=== PATIENT | female | born 1945 | race Caucasian/White ===

== ENCOUNTER 2019-02-08 07:44 | Inpatient (IN) ==
--- NOTE | 2019-01-24 13:00 | PAT Medication Instructions ---
Medication Instructions Date of Service January 24, 2019 Home Medications acetaminophen 1,000 mg PO Q6H PRN amlodipine 10 mg PO QPM anastrozole 1 mg PO QPM aspirin [Aspirin Low Dose] 81 mg PO QPM calcium carbonate-vitamin D3 1 tab PO QPM iwcvhgmj-zyicy-esc 149-hyal ac 1 tab PO QPM ibandronate 150 mg PO MONTHLY ibuprofen 200 - 400 mg PO QID PRN levothyroxine 88 mcg PO QPM fubmaespxthv-efw-mhmo-FA-vit K 1 tab-cap PO QPM xy-uk-pciprl-aruo-jxlkdz-au843 1 cap PO QPM naproxen sodium [Aleve] 220 mg PO BID PRN Continue as directed ibandronate 150 mg PO MONTHLY ASK your surgeon for instructions naproxen sodium [Aleve] 220 mg PO BID PRN ASK your prescriber and surgeon anastrozole 1 mg PO QPM STOP taking 2 weeks before surgery (or as soon as possible if surgery is within 2 weeks) ojnccegz-xjauz-cwn 149-hyal ac 1 tab PO QPM jt-wf-mkkdto-asjm-ztasxb-ni303 1 cap PO QPM Take morning of surgery With a small sip of water, OTHERWISE NOTHING TO EAT OR DRINK AFTER MIDNIGHT: acetaminophen 1,000 mg PO Q6H PRN (okay to take up to 4 hours prior to surgery if needed) Take evening before surgery acetaminophen 1,000 mg PO Q6H PRN (if needed) amlodipine 10 mg PO QPM aspirin [Aspirin Low Dose] 81 mg PO QPM calcium carbonate-vitamin D3 1 tab PO QPM levothyroxine 88 mcg PO QPM Other Notes If you have any questions please call us at [phone] or [phone] or [phone] or [phone]
--- NOTE | 2019-01-24 13:00 | Anesthesiology Consultation ---
Date of Service January 24, 2019 Assessment & Plan (1) Encounter for pre-operative examination: Chart Review Chart Review: Acceptable Risk for Surgery and Patient seen in Pre Admission Testing Teaching & Discussion Pre-Anesthesia Teaching/Discussion Notes: Instructed NPO after midnight before surgery,except medications with 15 cc of water. Medication instructions provided according to the PAT guidelines. History Surgery Operation Date: 02/08/19 07:00 Proposed Procedures p Left Total Knee Arthroplasty - Campos See MD Height/Weight Height: 5 ft 9 in Weight: 103 kg Allergies Allergy/AdvReac Type Severity Reaction Status Date / Time gabapentin AdvReac Mild feet and Verified 01/17/19 08:59 leg swelling Medications Home Medications Medication Instructions Recorded Confirmed Last Taken acetaminophen 1,000 mg PO Q6H PRN 01/17/19 01/17/19 Unknown amlodipine 10 mg PO QPM 01/17/19 01/17/19 Unknown anastrozole 1 mg PO QPM 01/17/19 01/17/19 Unknown aspirin [Aspirin Low Dose] 81 mg PO QPM 01/17/19 01/17/19 Unknown calcium carbonate-vitamin D3 1 tab PO QPM 01/17/19 01/17/19 Unknown [Calcium 500 + D (D3)] ipidnisw-cclxs-tqo 149-hyal ac 1 tab PO QPM 01/17/19 01/17/19 Unknown [Glucos Chond Cplx Advanced] ibandronate 150 mg PO MONTHLY 01/17/19 01/17/19 Unknown ibuprofen 200 - 400 mg PO QID PRN 01/17/19 01/17/19 Unknown levothyroxine 88 mcg PO QPM 01/17/19 01/17/19 Unknown cbobpacapjcj-udb-sfqx-FA-vit K 1 tab-cap PO QPM 01/17/19 01/17/19 Unknown [Multi For Her] ik-ch-tmffyw-bphw-dstqdp-vw112 1 cap PO QPM 01/17/19 01/17/19 Unknown [Macular Health Formula] naproxen sodium [Aleve] 220 mg PO BID PRN 01/17/19 01/17/19 Unknown Past Medical History Medical History Hx of breast cancer Hypertension Hypothyroidism Macular degeneration ON PREVENTATIVE MEDS PER PATIENT Osteoarthritis Past Surgical History Surgical History History of bilateral mastectomy Hx of bilateral breast implants Hx of hysterectomy, total Past Anesthesia History No Family Hx of Anesthesia Complications and Other Patient states she states she overheard after surgery that she had trouble breathing and hypotension with 2014 b/l breast [place] [facility] [place] was not told there was any issues with surgery. no interventions were needed and patient was discharged the next day as planned without issue. She states no similar issues with other surgeries.* History of PONV No Motion Sickness Screening History of Motion Sickness: No Social History Smoking Status: Never smoker Do You Dip or Chew Tobacco: No Hx Alcohol Use: No Hx Substance Use: No Exercise / Class Metabolic Activity III < 4 Walking/Shop/Light housework Review of Systems Patient denies chest pain, shortness of breath, cough, wheezing, palpitations. Physical Exam Vital Signs VITALS BP 120/76 P 64 TEMP 97.5 SP02 97%RA RESP 16 PHYSICAL Full neck and c-spine range of motion. Full TMJ range of motion. TMD 3 finger breaths Mallampati Score 2 Dentition: intact, crown on molar Lungs: clear throughout to auscultation Cardiac: regular rate and rhythm, no murmurs noted Spine: normal Carotid arteries: negative bruit Extremities: no edema Testing Electrocardiogram Date: 01/24/19 SR with first degree AVB at 64bpm. Otherwise "normal" Chest X-Ray Date: 01/24/19 Findings: + NAD Laboratory Results 01/24/19 13:18 01/24/19 13:18 Blood Type O Positive 01/24/19 13:18 Antibody Screen NEGATIVE 01/24/19 13:18 PT 10.0 Seconds (9.0-12.0) 01/24/19 13:18 INR 1.0 (0.9-1.1) 01/24/19 13:18 APTT 29.3 Seconds (21.0-31.0) 01/24/19 13:18 Hemoglobin A1c 5.6 % (4.5-5.6) 01/24/19 13:18 Urine Color Yellow 01/24/19 13:18 Urine Appearance Cloudy (Clear) H 01/24/19 13:18 Urine pH 5.0 (4.5-7.5) 01/24/19 13:18 Ur Specific Kirby 1.023 (1.000-1.030) 01/24/19 13:18 Urine Protein Negative (Negative) 01/24/19 13:18 Urine Glucose (UA) Negative (Negative) 01/24/19 13:18 Urine Ketones Negative (Negative) 01/24/19 13:18 Urine Nitrite Positive (Negative) H 01/24/19 13:18 Ur Leukocyte Esterase 3+ (Negative) H 01/24/19 13:18 Urine WBC (Auto) >30 /hpf (0-5) H 01/24/19 13:18 Urine RBC (Auto) 5-10 /hpf (0-4) H 01/24/19 13:18 U Hyaline Cast (Auto) 1-5 /lpf (0-5) 01/24/19 13:18 U Epithel Cells (Auto) 20-30 /lpf (0-5) H 01/24/19 13:18 Urine Bacteria (Auto) 4+ (Negative) H 01/24/19 13:18 01/24/19 13:18 Urine Culture - Preliminary Urine,Random Escherichia coli Surgeon made aware of abnormal UA*
--- NOTE | 2019-01-24 13:42 | XRay Report ---
XR chest Pre-admission PA/Lat HISTORY: 73 years-old Female pat preoperative exam. No acute chest complaints reported COMPARISON: None available TECHNIQUE: PA and lateral views of the chest FINDINGS: Cardiomediastinal and hilar silhouettes are within normal limits. There is no pneumothorax, pleural e ffusion, focal airspace consolidation or overt pulmonary edema. Degenerative changes are seen about t he shoulders and spine. IMPRESSION: No acute process. The above report was generated using voice recognition software. It may contain grammatical, syntax o r spelling errors. Electronically signed by: Zafar Hernandez M.D. 01/24/2019 1:41 PM
[2019-01-24 15:34] LABS: Basophils # (auto) 0.06 K/uL (0-0.2); Basophils % (auto) 0.6 %; Eosinophils # (auto) 0.24 K/uL (0-0.5); Eosinophils % (auto) 2.3 %; Hematocrit (blood only) 42.5 % (37-47); Hemoglobin 14.3 g/dL (12.0-16.0); Immature Granulocytes # (auto) 0.02 K/uL (0.00-0.02); Immature Granulocytes % (auto) 0.2 %; Lymphocytes # (auto) 3.09 K/uL (1.2-3.4); Lymphocytes % (auto) 29.6 %; Mean Corpuscular Hgb Conc 33.6 g/dL (32-36); Mean Corpuscular Volume 93.4 fL (80-100); Mean Platelet Volume 10.5 fL (7.4-10.4); Monocytes # (auto) 0.76 K/uL (0.11-0.59); Monocytes % (auto) 7.3 %; Neutrophils # (auto) 6.27 K/uL (1.4-6.5); Platelet Count 345 K/uL (130-400); RDW Coefficient of Variation 13.5 % (11.5-14.5); RDW Standard Deviation 46.3 fL (36.4-46.3); Red Blood Count 4.55 M/uL (4.2-5.4); White Blood Count 10.44 K/uL (4.8-10.8)
[2019-01-24 15:44] LABS: Albumin Level 4.3 gm/dl (3.4-5.0); Appearance Urine Cloudy (Clear); BUN Creatinine Ratio 24.4 (10-20); Bacteria Urine Automated 4+ (Negative); Bilirubin Urine Negative (Negative); Blood Urine Negative (Negative); Calcium 9.7 mg/dl (8.5-10.1); Color Urine Yellow; Creatinine Clr Calc Pharmacy 76.4 ml/min; Epithelial Cell Urine Auto 20-30 /lpf (0-5); Est GFR (African American) 79.3; Est GFR (Non-African American) 68.5; Glucose Urine UA Negative (Negative); Ketones Urine Negative (Negative); Leukocyte Esterase Urine 3+ (Negative); Nitrite Urine Positive (Negative); Potassium 4.1 mmol/L (3.5-5.1); Protein Urine Negative (Negative); Specific Gravity Urine 1.023 (1.000-1.030); Urobilinogen Urine Negative (Negative); WBC Urine Automated >30 /hpf (0-5)
[2019-01-24 15:48] LABS: Partial Thromboplastin Ratio 1.1; Partial Thromboplastin Time 29.3 Seconds (21.0-31.0)
[2019-01-25 06:55] LABS: Estimated Average Glucose 114 mg/dl; Hemoglobin A1C 5.6 % (4.5-5.6)
--- NOTE | 2019-02-07 16:40 | History and Physical Report ---
DATE OF ADMISSION: 02/08/2019 CHIEF COMPLAINT: Chronic left knee pain. HISTORY OF PRESENT ILLNESS: This is a 73-year-old female patient of Dr. See'lawanda complaining of chronic left knee pain and instability, longstanding, now progressively getting worse. The patient has failed conservative treatment with anti-inflammatories, Tylenol the use of a wrap and a cane and home exercise program. The patient has been diagnosed with end-stage osteoarthritis per clinical and radiographic exams. The patient has increased pain with weightbearing activities and her pain does interfere with her activities of daily living. The patient wished to proceed with a left total knee arthroplasty. PAST MEDICAL HISTORY: Hypertension, rheumatoid arthritis, osteoarthritis, neck problems, obesity, history of breast cancer. She has developed significant drop in her blood pressure with anesthesia in the past. SOCIAL HISTORY: Nonsmoker, nondrinker. PAST SURGICAL HISTORY: Hysterectomy, bilateral mastectomy with implants. FAMILY HISTORY: Noncontributory. REVIEW OF SYSTEMS: Chronic left knee pain and instability. Otherwise, denies any shortness of breath, chest pain, nausea, vomiting other joint complaints. MEDICATIONS: Anastrozole 1 mg daily, levothyroxine 75 mcg daily, amlodipine 5 mg daily, calcium plus D daily, glucosamine chondroitin daily, Macuvite eye care daily, aspirin 81 mg daily, multivitamin daily, iron 400 mg daily, ibandronate sodium 150 mg monthly. ALLERGIES: GABAPENTIN WHICH CAUSES LEGS AND FEET TO SWELL. PHYSICAL EXAMINATION: GENERAL: Well-developed, well-nourished 73-year-old female in no acute distress. She is alert and oriented x3 and pleasant. HEENT: Normocephalic, atraumatic. Extraocular motions are intact. Pupils equal and reactive to light. HEART: Regular rate and rhythm, no murmurs. LUNGS: Clear. ABDOMEN: Soft, nontender, bowel sounds present. EXTREMITIES: Left knee valgus deformity with a limited range of motion of 0-125 degrees. Mild effusion. Crepitation with passive range of motion. Lateral joint line tenderness. NEUROLOGIC: Neurovascularly, she is intact in her left lower extremity with 5/5 strength. DIAGNOSES: Left knee end-stage osteoarthritis, hypertension, rheumatoid arthritis, neck problems, obesity, history of breast cancer. The patient also has a history of low blood pressure with anesthesia. PLAN: The patient was advised of her diagnosis. Indications, risks, benefits, postop course have all been reviewed. The patient wished to proceed with a total knee arthroplasty on the left. Necessary consent forms, preoperative testing and clearances will be obtained.
[~2019-02-08 07:44] MED LIST: ACETAMINOPHEN 500 MG TAB PO SCH; BUPIVACAINE 0.5 % 5 MG/1 ML PF 10ML VIAL ONE; CEFAZOLIN 2000MG 2,000 MG/15 ML SYR IV SCH; CeleBREX 200 MG CAP PO SCH; EPINEPHrine INJ 1 MG/ML AMP ONE; FAMOTIDINE 20 MG TAB PO SCH; LR 15ML/HR IV SCH; LR 500ML BOLUS, THEN 15ML/HR IV SCH; METOCLOPRAMIDE HCL 10 MG TABLET PO SCH; ROPIVACAINE 0.5% 5 MG/ML 30 ML VIAL ONE; ROPIVACAINE 0.5% HCL/PF 150 MG, BUPIVACAINE 0.5% MPF 30 ML, EPINEPHrine 30MG/30ML (OR U... INFIL SCH; TRANEXAMIC ACID 1,000 MG **IV Intra-op IV SCH; TRANEXAMIC ACID 1,000 MG **IV Pre-op IV SCH; dexAMETHasone 4 MG TAB PO SCH
--- NOTE | 2019-02-08 09:07 | History & Physical Bridge Note ---
Date of Service February 08, 2019 History & Physical Bridge Note I have examined the patient, reviewed the History & Physical and in the interval since the performance of the History & Physical I have noted the following changes of clinical significance: no changes noted
[2019-02-08] MEDS ORDERED: fentaNYL citrate 100 MCG/2 ML VIAL ONE ×2 (09:27→10:55)
[2019-02-08] MEDS ORDERED: BACITRACIN INJ 50,000 UNIT VIAL ONE (09:27)
[2019-02-08] MEDS ORDERED: PROPOFOL IV EMULSION 10 MG/ML 20 ML VIAL IV ONE ×3 (09:27→11:39)
[2019-02-08] MEDS ORDERED: MIDAZOLAM HCL 1 MG/ML 2ML VIAL ONE (09:27)
[2019-02-08] MEDS ORDERED: POVIDONE-IODINE OP SOLN 30 ML BTL ONE (09:27)
[2019-02-08] MEDS ORDERED: ePHEDrine sulfate 50 MG/ML AMP IV PRN (10:38)
[2019-02-08] MEDS ORDERED: ATROPINE SULFATE 0.1 MG/ML 10ML SYR IV PRN (10:38)
--- NOTE | 2019-02-08 12:13 | Operative Report ---
Post Operative Report Pre & Post Diagnosis Operation Date: 02/08/19 10:20 Pre-Op Diagnosis: Left Knee Degenerative Joint Disease Post-Op Diagnosis: Left Knee Degenerative Joint Disease Procedure Operation Date: 02/08/19 10:20 Actual Procedures p Left Total Knee Arthroplasty(Left) - Campos See MD Surgeon Campos See MD Collar Shaper Operator Jacob WILLAMS Estimated Blood Loss 5 Findings Consistent with Post-Op Diagnosis Specimens Bone cuts Drains 2 Hemovac Anesthesia Type Spinal MAC Complications none Disposition Accompanied Patient To Recovery: No Disposition: Recovery Room Indications 73-year-old female with end-stage bilateral knee osteoarthritis left greater than right with severe valgus angulatory deformity left knee zgeu-qv-nlrx lateral compartment. Description of Procedure Patient taken to the operating room the size under spinal MAC regional block anesthesia. Patient was placed supine on the operating table. A pneumatic tourniquet was placed about the left upper thigh. The left lower extremity was prepped and draped in sterile fashion. Knee exam demonstrated at least 20 degree valgus angulatory deformity, 0 through 110 degrees range of motion. Patient with tight lateral compartment with no pseudolaxity and some laxity of the MCL due to chronic valgus alignment. The leg was elevated exsanguinated with an Esmarch bandage and pneumatic tourniquet was raised to 325 millimeters of mercury. Skin incised sharply in longitudinal fashion. Subcutaneous flaps elevated. Incision was made through the medial retinaculum extending up in the mid third of the quadriceps tendon and down to the medial tibial tubercle. Intra-articular findings demonstrated dtdd-ys-gsnl lateral compartment ghqx-gm-vcop central patella femoral compartment grade 3 medial compartment OA tricompartmental osteophytes. The Prosetta triathlon total knee arthroplasty system was used. To expose the knee the infrapatellar fat pad was resected. The meniscal remnants and cruciate ligaments were resected. The anterior fat pad over the femur in the area of the anterior flange of the femoral component was resected. Lateral synovial bands release. The femur was exposed. An intramedullary drill hole was made into the canal. A guide lori was placed. Distal femoral cutting guide was adjusted to resect a 6 degree valgus cut with 10 millimeters distal femur resected. The knee was extended and a subperiosteal peel lateral release was performed around the patella. Patella width was measured and width was reproduced using a freehand cut technique and a 36 x 10 patella component. The 3 drill holes were made and the excess lateral facet was beveled off to prevent any impingement. Attention was taken back to the femur which was exposed with retractors and the femoral sizing guide was pinned in position. The drill holes were placed in 3 of external rotation to match epicondylar axis. Femur sized for a 5 component. The 4-in-1 cutting block was placed and then the anterior posterior and chamfer cuts are made. The tibia was then subluxed. The external tibial cutting guide was just to make a perpendicular cut to the long axis of the tibia below the most deficient bone loss side. A lamina tower crane operator was used and the flexion extension gaps were balanced. All posterior osteophytes removed. Attention was taken to a very large posterior medial osteophyte that had to be shelled out from the soft tissues removed with a rongeur, curved curette, and Evangelina. All meniscal remnants were resected. The tibia exposed and the trial tibial component size 4 was externally rotated in line with the tibial tubercle and pinned in position. The punch for stem was used. The notch cutting device was centered appropr iately and the femoral notch cut was made. The femoral trial was inserted. Trial tibial inserts were placed and size 11 gave balanced ligaments through flexion and extension. There was some posterior medial laxity noted from removing that very large osteophyte and stretching of the MCL preop so I went ahead and did a trial with a posterior constrained 11 component which gave full range of motion and better stability. patella tracking was assessed. The patella tracked centrally. The trial components were then removed and the drill was used for the triathlon total knee universal tibial baseplate that would accept the posterior stabilized polyethylene component. the orthomix anesthetic cocktail was injected per protocol. The knee was then copiously irrigated with pulsatile lavage antibiotic solution. Final components were then cemented with Simplex cement. Final components were triathlon posterior stabilized size 5 left femur component, triathlon total knee universal tibial baseplate size 4, triathlon X3 total stabilizer and tibial insert size 4,11 mm type TS. Symmetrical 36 x 10 mm patella. While the cement cured the Betadine soak was used per protocol. After cement cured further pulsatile lavage irrigation performed and 2 Hemovac drains were brought out laterally. The quadriceps tendon and medial retinaculum were closed with figure of 8 #1 Vicryl sutures. The knee was taken through full range of motion and the repair was secure. The subcutaneous tissues were closed with 2-0 Vicryl sutures. Skin was closed with sarthak. Sterile dressings were applied. Patient procedure well. Jacob WILLAMS was my physician assistant quality manager who assisted in patient positioning prepping and draping,leg positioning ,soft tissue retraction and instrument management and participated in the closing and will participate in postoperative care of the patient. The patient tolerated the procedure well. I attest to the content of the Intraoperative Record and any orders documented therein. Any exceptions are noted below.
[2019-02-08] MEDS ORDERED: HYDROmorphone INJ 0.5 MG/0.5 ML SYR ONE (13:06)
--- NOTE | 2019-02-08 13:06 | XRay Report ---
XR knee LT 2V routine HISTORY: 73 years-old Female Surgical Post Op left knee total joint arthroplasty. History of degener ative joint disease COMPARISON: Left knee radiographs 07/18/2018 TECHNIQUE: 2 views of the left knee FINDINGS: Hinged left knee total joint arthroplasty with patellar resurfacing demonstrates satisfactory alignme nt. No acute fracture or retained foreign body. Anterior midline skin sarthak are noted along with ex pected postsurgical soft tissue swelling and deep tissue air with surgical drainage catheter. IMPRESSION: Hinged left knee total joint arthroplasty and patella resurfacing with satisfactory align ment. The above report was generated using voice recognition software. It may contain grammatical, syntax o r spelling errors. Electronically signed by: Zafar Hernandez M.D. 02/08/2019 1:05 PM
[2019-02-08] MEDS: HYDROmorphone INJ 0.5 MG/0.5 ML SYR IV PRN ×2 (13:07→13:13)
--- NOTE | 2019-02-08 13:32 | Anesthesiology Progress Note ---
Date of Service February 08, 2019 Anesthesia Post Procedure Vital Signs Vital Signs: Temp Pulse Pulse Resp BP Pulse Ox 02/08/19 13:20 36.1 C L 84 15 139/67 95 02/08/19 13:10 88 18 146/66 H 92 02/08/19 13:00 87 15 146/74 H 93 02/08/19 12:50 86 18 130/68 93 02/08/19 12:40 88 18 132/62 93 02/08/19 12:31 37.3 C 89 18 134/66 95 02/08/19 08:30 36.7 C 87 20 167/90 H 99 Pain Intensity Left Neck: Pain Intensity: 2 Left Posterior Knee: Pain Intensity: 2 Notes Mental Status: alert / awake / arousable Patient Amnestic to Procedure: Yes Nausea / Vomiting: adequately controlled Pain: adequately controlled Airway Patency, RR, SpO2: stable & adequate BP & HR: stable & adequate Hydration State: stable & adequate Neuraxial Anesthesia: was administered and sensory block resolved Anesthetic Complications: no major complications apparent
[2019-02-08] MEDS ORDERED: ONDANSETRON INJ 2 MG/ML 2 ML VIAL IV PRN (13:52)
[2019-02-08] MEDS ORDERED: NALOXONE HCL 0.4 MG/1 ML VIAL/CARP IV PRN (13:52)
[2019-02-08] MEDS ORDERED: HYDROmorphone INJ 0.5 MG/0.5 ML SYR IV PRN (13:52)
[2019-02-08] MEDS ORDERED: MAGNESIUM HYDROXIDE SUSP 30 ML UDC PO PRN (13:52)
[2019-02-08] MEDS ORDERED: BISACODYL 10 MG SUPP PR PRN (13:52)
[2019-02-08] MEDS: ORTHO JOINT ANESTHETIC ONE ×2 (14:08→14:11)
[2019-02-08] MEDS: ACETAMINOPHEN 500 MG TAB PO SCH ×2 (14:31→20:57)
[2019-02-08] MEDS: SODIUM CHLORIDE 0.9% 1000ML 1,000 ML IV SCH ×2 (14:34→21:02)
[2019-02-08] MEDS: OXYCODONE HCL IR 5 MG TAB (IMMEDIATE RELEASE) PO PRN ×2 (15:59→20:15)
--- NOTE | 2019-02-08 17:10 | Hospitalist Consultation ---
Date of Consultation February 08, 2019 Assessment & Plan (1) S/P total knee arthroplasty: - S/p left total knee arthroplasty today. - Pain control per primary team. - DVT ppx with Aspirin 81 mg BID. - PT/OT ordered. - Monitor CBC in the morning to evaluate for acute blood loss anemia. (2) Breast cancer: - S/p bilateral mastectomy. - Continue Arimidex as prescribed - will complete 5 year course of therapy in April 2019. (3) Hypertension: - Continue Amlodipine 10 mg daily. (4) Hypothyroidism: - Continue Synthroid 88 mcg daily. (5) DVT prophylaxis: - Aspirin 81 mg BID. Dispo: Med/surg; pt. is medically stable, will sign off. Please call with any questions. Supervising Physician Co-Signing Physician Notes PA Supervision Note: I personally saw and examined the patient. I verified all fajardo points and agree with ЕКАТЕРИНА Haynes with the following exceptions and/or additions: Doing well post-operatively. No CP or SOB Vitals reviewed AAOx3, anicteric sclerae CV RRR no mgr Pulm: CTAB no wcr Abd +BS soft NT ND Ext LLE in TYSHAWN wrap not removed, drain with moderate bloody drainage 73 yo female with OA, HTN, hypothyroidism, h/o BR CA in remission, here with left TKA. DOing wlel -watch BPs and CBC in AM Hospitalist service to sign off History of Present Illness Reason for Consultation: Medical Management Attending Physician: Campos See MD History of Present Illness Mrs. Chua is a 73 year old female with past medical history of breast cancer, HTN, hypothyroidism, macular degeneration and osteoarthritis who presented for a planned left total knee arthroplasty. She presents feeling well overall today. Denies pain in left knee, chest pain, SOB, nausea/vomiting, difficulty urinating post op. Last BM was on 02/07/19. Pre-op UC positive for E. coli; she completed a 5 day course of PO abx. Allergies Allergy/AdvReac Type Severity Reaction Status Date / Time gabapentin AdvReac Mild feet and Verified 02/08/19 08:18 leg swelling Home Medications Home Medications Medication Instructions Recorded Confirmed Type acetaminophen 1,000 mg PO Q6H PRN 01/17/19 02/08/19 History amlodipine 10 mg PO QPM 01/17/19 02/08/19 History anastrozole 1 mg PO QPM 01/17/19 02/08/19 History aspirin [Aspirin Low Dose] 81 mg PO QPM 01/17/19 02/08/19 History calcium carbonate-vitamin D3 1 tab PO QPM 01/17/19 02/08/19 History [Calcium 500 + D (D3)] rtqlyhov-mvcno-tyb 149-hyal ac 1 tab PO QPM 01/17/19 02/08/19 History [Glucos Chond Cplx Advanced] ibandronate 150 mg PO MONTHLY 01/17/19 02/08/19 History ibuprofen 200 - 400 mg PO QID PRN 01/17/19 02/08/19 History levothyroxine 88 mcg PO QPM 01/17/19 02/08/19 History wudoeutvaduo-brq-vdgb-FA-vit K 1 tab-cap PO QPM 01/17/19 02/08/19 History [Multi For Her] bb-ac-vvwloj-eolw-slzuvp-mp461 1 cap PO QPM 01/17/19 02/08/19 History [Macular Health Formula] naproxen sodium [Aleve] 220 mg PO BID PRN 01/17/19 02/08/19 History Patient History Medical History Hx of breast cancer Hypertension Hypothyroidism Osteoarthritis Macular degeneration ON PREVENTATIVE MEDS PER PATIENT Surgical History History of bilateral mastectomy Hx of bilateral breast implants Hx of hysterectomy, total Family History Mother Breast cancer Social History Preferred Language: Somali Communication Ability: Effective Beliefs That Will Affect Care: None Current Living Situation: Spouse Other Information That Helps Us Care for You: No Feels Safe at Home: Yes Safety Concerns: Feels Safe At This Time Smoking Status: Never smoker Do You Dip or Chew Tobacco: No Hx Alcohol Use: No Hx Substance Use: No Review of Systems Review of Systems: All systems reviewed & are unremarkable except as noted in HPI & below Constitutional: no fever, no chills, no fatigue and no weakness Respiratory: no cough, no dyspnea and no wheezing Cardiovascular: no chest pain, no palpitations, no lightheadedness and no edema Gastrointestinal: no abdominal pain, no nausea, no vomiting, no constipation and no diarrhea/loose stools Genitourinary: no dysuria, no difficulty urinating and no hematuria Musculoskeletal: no back pain, no joint pain and no myalgia Integumentary: no non-healing lesions Neurologic: no dizziness and no headache(s) Allergy / Immunological: no rash Physical Exam Physical Exam: General: Resting comfortably in no apparent distress; A&OX3 HEENT: NC/AT; PERRLA with EOMI; Leary conjunctiva, MMM. Neck: Supple and nontender Cardiac: RRR w/o murmurs, gallops or rubs Lungs: CTA bilaterally; No rhonchi, wheezing, or rales Abdomen: Bowel normoactive X 4; Nontender to palpation Extremities: Warm. No edema present Neuro: No focal weakness Skin: No rash Results & Data Vital Signs (Past 12 Hours) Vital Signs Temp Pulse Pulse Resp BP Pulse Ox 02/08/19 16:52 36.2 C L 78 16 127/72 92 02/08/19 15:45 36.3 C L 84 18 121/67 98 02/08/19 15:01 36.5 C 91 H 16 128/71 97 02/08/19 14:14 88 18 127/73 98 02/08/19 13:45 36.9 C 89 16 142/75 H 97 02/08/19 13:30 36.1 C L 84 15 143/72 H 95 02/08/19 13:20 36.1 C L 84 15 139/67 95 02/08/19 13:10 88 18 146/66 H 92 02/08/19 13:00 87 15 146/74 H 93 02/08/19 12:50 86 18 130/68 93 02/08/19 12:40 88 18 132/62 93 02/08/19 12:31 37.3 C 89 18 134/66 95 02/08/19 08:30 36.7 C 87 20 167/90 H 99
[2019-02-08] MEDS: CEFAZOLIN 2000MG 2,000 MG/15 ML SYR IV SCH (18:51)
[2019-02-08] MEDS: CALCIUM 600MG + VIT D 400 IU TAB PO SCH (20:56)
[2019-02-08] MEDS: DOCUSATE SODIUM 100 MG CAP PO SCH (20:56)
[2019-02-08] MEDS: ANASTROZOLE 1 MG TAB PO SCH (20:56)
[2019-02-08] MEDS: ASPIRIN 81 MG ECTAB PO SCH (20:56)
[2019-02-08] MEDS: CEROVITE ADV FORMULA TAB PO SCH (20:56)
[2019-02-08] MEDS: LEVOTHYROXINE SODIUM 88 MCG TABLET PO SCH (20:57)
[2019-02-08] MEDS: SENNA 8.6 MG TAB PO SCH (20:57)
[2019-02-08] MEDS: AMLODIPINE BESYLATE 5 MG TAB PO SCH (20:57)
[2019-02-09] MEDS: CEFAZOLIN 2000MG 2,000 MG/15 ML SYR IV SCH (01:39)
[2019-02-09] MEDS: ACETAMINOPHEN 500 MG TAB PO SCH ×3 (05:24→22:25)
[2019-02-09 06:35] LABS: Hematocrit (blood only) 30.7 % (37-47); Hemoglobin 10.6 g/dL (12.0-16.0); Mean Corpuscular Hgb Conc 34.5 g/dL (32-36); Mean Corpuscular Volume 91.9 fL (80-100); Mean Platelet Volume 9.7 fL (7.4-10.4); Platelet Count 242 K/uL (130-400); RDW Standard Deviation 46.6 fL (36.4-46.3); Red Blood Count 3.34 M/uL (4.2-5.4); White Blood Count 15.45 K/uL (4.8-10.8)
[2019-02-09 07:10] LABS: BUN Creatinine Ratio 26.6 (10-20); Calcium 9.6 mg/dl (8.5-10.1); Creatinine Clr Calc Pharmacy 89.8 ml/min; Est GFR (Non-African American) 83.7; Potassium 4.5 mmol/L (3.5-5.1)
--- NOTE | 2019-02-09 08:00 | Anesthesiology Progress Note ---
Date of Service February 09, 2019 Anesthesia Post Procedure Vital Signs Vital Signs: Temp Pulse Pulse Resp BP BP Pulse Ox 02/09/19 07:10 36.7 C 80 18 157/73 H 95 02/09/19 03:57 36.7 C 75 15 111/65 92 02/08/19 23:39 36.5 C 71 14 112/66 94 02/08/19 19:14 36.4 C L 80 16 135/78 98 02/08/19 16:52 36.2 C L 78 16 127/72 92 02/08/19 15:45 36.3 C L 84 18 121/67 98 02/08/19 15:01 36.5 C 91 H 16 128/71 97 02/08/19 14:14 88 18 127/73 98 02/08/19 13:45 36.9 C 89 16 142/75 H 97 02/08/19 13:30 36.1 C L 84 15 143/72 H 95 02/08/19 13:20 36.1 C L 84 15 139/67 95 02/08/19 13:10 88 18 146/66 H 92 02/08/19 13:00 87 15 146/74 H 93 02/08/19 12:50 86 18 130/68 93 02/08/19 12:40 88 18 132/62 93 02/08/19 12:31 37.3 C 89 18 134/66 95 02/08/19 08:30 36.7 C 87 20 167/90 H 99 Pain Intensity Left Neck: Pain Intensity: 2 Left Posterior Knee: Pain Intensity: 0 Left Shoulder: Pain Intensity: 2 Notes Mental Status: alert / awake / arousable and participated in evaluation Nausea / Vomiting: adequately controlled Pain: adequately controlled Airway Patency, RR, SpO2: stable & adequate BP & HR: stable & adequate Hydration State: stable & adequate
--- NOTE | 2019-02-09 08:12 | Orthopedic Progress Note ---
Date of Service February 09, 2019 Assessment & Plan (1) S/P total knee arthroplasty: POD #1, Left TKA PT/ OT DVT proph- ASA D/C planning- Home w HH Appreciate medicine input. Subjective POD #1, Doing well, no issues. Denies sob, cp, n/v. Pain controlled well. Physical Exam Physical Exam: Left knee dressings c/d/i. No drainage, drain in tact. Toes and ankle mobile. No calf tenderness. A&Ox3. Results & Data Vital Signs (Past 12 Hours) Vital Signs Temp Pulse Resp BP BP Pulse Ox 02/09/19 07:10 36.7 C 80 18 157/73 H 95 02/09/19 03:57 36.7 C 75 15 111/65 92 02/08/19 23:39 36.5 C 71 14 112/66 94
[2019-02-09] MEDS: DOCUSATE SODIUM 100 MG CAP PO SCH ×2 (08:30→20:45)
[2019-02-09] MEDS: ASPIRIN 81 MG ECTAB PO SCH ×2 (08:30→20:45)
[2019-02-09] MEDS: OXYCODONE HCL IR 5 MG TAB (IMMEDIATE RELEASE) PO PRN ×4 (08:32→22:24)
[2019-02-09] MEDS ORDERED: MULTIVITAMIN TAB PO SCH (09:00)
[2019-02-09] MEDS: ANASTROZOLE 1 MG TAB PO SCH (20:45)
[2019-02-09] MEDS: CALCIUM 600MG + VIT D 400 IU TAB PO SCH (20:45)
[2019-02-09] MEDS: SENNA 8.6 MG TAB PO SCH (20:46)
[2019-02-09] MEDS: AMLODIPINE BESYLATE 5 MG TAB PO SCH (20:46)
[2019-02-09] MEDS: LEVOTHYROXINE SODIUM 88 MCG TABLET PO SCH (20:46)
[2019-02-09] MEDS: CEROVITE ADV FORMULA TAB PO SCH (20:46)
[2019-02-10] MEDS: OXYCODONE HCL IR 5 MG TAB (IMMEDIATE RELEASE) PO PRN ×2 (04:28→08:40)
[2019-02-10] MEDS: ACETAMINOPHEN 500 MG TAB PO SCH (06:08)
[2019-02-10] MEDS: DOCUSATE SODIUM 100 MG CAP PO SCH (07:11)
[2019-02-10] MEDS: ASPIRIN 81 MG ECTAB PO SCH (07:12)
--- NOTE | 2019-02-10 08:07 | Orthopedic Progress Note ---
Date of Service February 10, 2019 Assessment & Plan (1) S/P total knee arthroplasty: POD #2, Left TKA PT/ OT DVT proph- ASA D/C planning- Home w HH today. Appreciate medicine input. Subjective POD #2, Doing well, no issues. Denies sob, cp, n/v. Pain controlled well. Physical Exam Physical Exam: Left knee silverlon c/d/i, no erythema, no drainage. Toes and ankle mobile. No calf tenderness. A&Ox3. Results & Data Vital Signs (Past 12 Hours) Vital Signs Temp Pulse Resp BP Pulse Ox 02/10/19 06:05 37.0 C 84 16 132/70 93 02/09/19 23:13 36.8 C 87 15 111/61 96
--- NOTE | 2019-02-13 17:50 | Discharge Summary ---
DISCHARGE DIAGNOSIS: Left knee degenerative joint disease. SECONDARY DIAGNOSES: Hypertension, rheumatoid arthritis, osteoarthritis, history of breast cancer, history of hypotension with anesthesia in the past. CONSULTS: Frances Haynes PA-C/Dr. Fairbanks. PROCEDURES: Left total knee arthroplasty performed by Dr. See on 02/08/2019. BRIEF HISTORY: As dictated in history and physical. HOSPITAL SUMMARY: The patient was admitted on the above-noted date and had the above-noted surgery performed, which she tolerated well. On the first postoperative day she was doing well with no issues. Denied shortness of breath, chest pain, nausea, vomiting. Pain was controlled. Dressings were intact. No drainage was noted. Toes and ankle were mobile. Calves were nontender and she was started on physical therapy protocol and continued on DVT prophylaxis and pain management as well as medical management. By her second postoperative day she was doing well without issues. Denied shortness of breath, chest pain or nausea, vomiting. Pain was controlled. Silverlon dressing was clean, dry and intact. No drainage. Toes and ankle were mobile. No calf tenderness. She was progressing with her physical therapy and was remaining medically stable and it was felt she could be discharged to home with home health services. For further review, please see chart. LABORATORY AND X-RAY DATA: As per chart. DISCHARGE INSTRUCTIONS: The patient was discharged to home with home health services on 02/10/2019. DIET: Regular. ACTIVITY: Weightbearing as tolerated left lower extremity with walker. Follow TK instruction sheets and special care instructions as noted. Follow up with Dr. See in 2 weeks. The patient to call for appointment if one has not been made for. DISCHARGE MEDICATIONS: Acetaminophen 1000 mg p.o. q. 8 hours, aspirin 81 mg p.o. b.i.d., oxycodone 5 mg p.o. q. 4 hours p.r.n. Resume home meds as listed and stop taking previous acetaminophen dose, previous aspirin dosage, ibuprofen and naproxen.
--- OUTSIDE RECORDS SUMMARY | 2019-02-13 20:04 | External Medical Summary | Continuity of Care Document ---
:1945 Author Name Sandhya Voss, Provider Address Unavailable Unavailable , Care Team Providers Name Role Phone Dejan Voss, Provider Unavailable [email or web address] Unavailable Unavailable Unavailable Unavailable Problems Breast cancer (174.9) (C50.919) Allergies and Adverse Reactions No Known Drug Allergies (Allergy) Medications Synthroid 75 MCG Oral Tablet; TAKE 1 TABLET DAILY. Start: 13-Mar-2014 Refills: 0 Fish Oil 1200 MG Oral Capsule; TAKE DIRECTED. Start: 13-Mar-2014 Refills: 0 Multivitamins Oral Capsule; TAKE 1 CAPSULE DAILY. Start: 13-Mar-2014 Refills: 0 Aspirin 81 MG TABS; TAKE 1 TABLET DAILY. Start: 13-Mar-2014 Refills: 0 Vitamin D3 1000 UNIT Oral Capsule; TAKE DIRECTED. Start: 13-Mar-2014 Refills: 0 Procedures History of Hysterectomy Status: Complete d History of Breast Surgery Lumpectomy Sta tus: Completed Immunizations Immunizations not documented Family History Unknown Family Member Family history of Breast Cancer (V16.3) Status: Active Comments: Family History Family history of Heart Disease (V17.49) Status: Active Comments: Family History Social History - Smoking Status Never smoker Plan of Treatment Planned Observations Planned Goals not documented Results No Known Results Results not documented
== END 2019-02-10 11:09 | disposition home health service (06) | DRG 470 ==
LOC: ASU 07:44 → 3E 13:44

== ENCOUNTER 2021-05-21 10:12 | Observation (INO) ==
--- NOTE | 2021-04-25 11:08 | PAT Medication Instructions ---
Medication Instructions Date of Service April 25, 2021 Home Medications Macular Health Formula 1 cap PO HS amlodipine 10 mg PO QPM ibandronate 150 mg PO MONTHLY levothyroxine 88 mcg PO HS cholecalciferol (vitamin D3) [Vitamin D3] 25 mcg PO QPM solifenacin 10 mg PO QPM Continue as directed ibandronate 150 mg PO MONTHLY STOP taking 2 weeks before surgery (or as soon as possible if surgery is within 2 weeks) Macular Health Formula 1 cap PO HS Take evening before surgery amlodipine 10 mg PO QPM levothyroxine 88 mcg PO HS cholecalciferol (vitamin D3) [Vitamin D3] 25 mcg PO QPM solifenacin 10 mg PO QPM Other Notes If you have any questions please call us at [phone] or [phone] or [phone] or [phone]
--- NOTE | 2021-04-28 11:36 | Anesthesiology Consultation ---
Date of Service April 28, 2021 Assessment & Plan (1) Encounter for pre-operative examination: - COVID screening: Per assessment on 04/28: Travel screen negative since 04/03 (traveled to [place] 03/27-04/03 for wedding celebration, 50 people in attendan ce). Patient vaccinated. No further travel or large gatherings planned prior to surgery. Preop COVID testing > 5 days after return from travel. No known COVID- 19 positive contacts or current COVID-19 related symptoms. Surgeon arranging preop COVID testing. Awaiting results. - S/P Left TKA (02/08/19): SAB at L3/L4 (x1 attempt) + PNB at [facility] - Post-op: Per patient, plan is to at least stay overnight after surgery. If surgeon does decide to do outpatient joint pathway, patient would be acceptable medically to proceed on pathway pending perioperative course. Chart Review Chart Review: Acceptable Risk for Surgery and Patient seen in Pre Admission Testing Teaching & Discussion Pre-Anesthesia Teaching/Discussion Notes: Instructed NPO after midnight before surgery,except medications with 15 cc of water. Medication instructions provided according to the PAT guidelines. History Surgery Operation Date: 05/21/21 07:15 Proposed Procedures p Right Total Knee Arthroplasty - Campos See MD Height/Weight Height: 5 ft 9 in Weight: 91.2 kg Allergies Allergy/AdvReac Type Severity Reaction Status Date / Time gabapentin AdvReac Mild Feet, leg Verified 04/28/21 11:31 swelling Medications Home Medications Medication Instructions Recorded Confirmed Last Taken Macular Health Formula 1 cap PO HS 01/17/19 04/15/21 01/25/19 08:00 amlodipine 10 mg PO QPM 01/17/19 04/15/21 02/07/19 22:00 ibandronate 150 mg PO MONTHLY 01/17/19 04/15/21 01/16/19 08:00 levothyroxine 88 mcg PO HS 01/17/19 04/15/21 02/07/19 22:00 cholecalciferol (vitamin D3) 25 mcg PO QPM 04/15/21 04/15/21 Unknown [Vitamin D3] solifenacin 10 mg PO QPM 04/15/21 04/15/21 Unknown Past Medical History Medical History History of urinary frequency Nighttime (controlled with solfenacin) Hx of breast cancer 2013 s/p b/l mastectomy (no chemo/no xrt) Hypertension Hypothyroidism Macular degeneration on preventative medication Osteoarthritis Exercise / Class Metabolic Activity II 4-5 Yardwork/Stairs/Walk up hill (one FS (no CP, no SOB)) Past Family History Family History Mother Breast cancer Past Surgical History Surgical History History of bilateral mastectomy History of total knee replacement Left TKA (02/08/19): SAB at L3/L4 (x1 attempt) + PNB at [facility] Hx of bilateral breast implants 2013 Hx of hysterectomy, total Past Anesthesia History No Hx of Anesthesia Complications and No Family Hx of Anesthesia Complications History of PONV No Hx of PONV and No Hx of Motion Sickness Social History Smoking Status: Never smoker Do You Dip or Chew Tobacco: No Hx Alcohol Use: No Hx Substance Use: No Review of Systems Patient denies chest pain, shortness of breath, dyspnea on exertion, fever, chills, cough, wheezing, palpitations. Physical Exam Vital Signs VITALS BP 123/77 P 62 TEMP 98.3 SP02 98%RA RESP 16 PHYSICAL Full cervical extension range of motion. Full TMJ range of motion. TMD 3.5 finger breaths Mallampati Score 3 Dentition: intact Lungs: clear throughout to auscultation Cardiac: regular rate and rhythm, no murmurs noted Spine: normal Carotid arteries: negative bruit Extremities: no edema Lab Results Anesthesia Preop Results Results Anesthesia Widget: WBC 6.96 K/uL (4.8-10.8) 04/28/21 Hgb 14.5 g/dL (12.0-16.0) 04/28/21 Hct 43.0 % (37-47) 04/28/21 Plt 353 K/uL (130-400) 04/28/21 Na 140 mmol/L (136-145) 04/28/21 K 4.5 mmol/L (3.5-5.1) 04/28/21 Cl 108 mmol/L (98-107) H 04/28/21 CO2 30 mmol/L (21-32) 04/28/21 BUN 13 mg/dl (7-18) 04/28/21 Creat 0.78 mg/dl (0.6-1.2) 04/28/21 Glucose Level 79 mg/dl (70-99) 04/28/21 PT 10.1 Seconds (9.0-12.0) 04/28/21 PTT 31.0 Seconds (21.0-31.0) 04/28/21 INR 1.0 (0.9-1.1) 04/28/21 HA1c 5.2 % (4.5-5.6) 04/28/21 Urine Color Yellow 04/28/21 Urine Appearance Clear (Clear) 04/28/21 Urine pH 6.0 (4.5-7.5) 04/28/21 Urine Specific [place] 1.005 (1.000-1.030) 04/28/21 Urine Protein Negative (Negative) 04/28/21 Urine Glucose (UA) Negative (Negative) 04/28/21 Urine Ketones Negative (Negative) 04/28/21 Urine Blood Negative (Negative) 04/28/21 Urine Nitrite Negative (Negative) 04/28/21 Urine Bilirubin Negative (Negative) 04/28/21 Urine Urobilinogen Negative (Negative) 04/28/21 Urine Leukocyte Esterase 2+ (Negative) H 04/28/21 Urine WBC (Auto) >30 /hpf (0-5) H 04/28/21 Urine RBC (Auto) 0-4 /hpf (0-4) 04/28/21 Urine Hyaline Casts (Auto) >30 /lpf (0-5) H 04/28/21 Urine Epithelial Cells (Auto) >30 /lpf (0-5) H 04/28/21 Urine Bacteria (Auto) Negative (Negative) 04/28/21 Urine Yeast Not Reportable 04/28/21 Blood Type O Positive 04/28/21 Antibody Screen NEGATIVE 04/28/21 Testing Electrocardiogram Date: 04/28/21 SB with first degree AVB at 59bpm. Low voltage QRS. No significant change c ompared to 01/24/19 pe rn ccu review. Chest X-Ray Date: 04/28/21 FINDINGS: The cardiac and mediastinal contours are normal. There is no evidence of focal pulmonary consolidation. There is no evidence of failure. No pleural effusions are visualized.[Infrahilar bilateral linear opacities likely represent subsegmental atelectasis. Degenerative changes are present within the spine. IMPRESSION: Infrahilar atelectasis/scarring. No active disease in the chest.
--- NOTE | 2021-05-18 10:18 | History & Physical Report ---
Date of Service May 18, 2021 Assessment & Plan (1) Primary osteoarthritis of right knee: Plan: Treatment options discussed with patient. She has failed conservative measures above and would like to proceed with knee replacement. Risks, benefits and alternatives to surgery including but not limited to infection, DVT, pain, stiffness, need for revision surgery, damage to blood vessels, damage to nerves, PE, , were discussed with the patient and they wish to proceed. Plan on right total knee arthroplasty at [facility] on 05/21/[address] See. Plan on ASA 81mg BID x 1 mo post op for DVT prophylaxis. Home with home health PT post discharge. All questions answered. F/u post op. History of Present Illness Chief Complaint: Right knee pain Primary Care Provider: Miguel Booker MD 76 year old female with PMHx significant for HTN, hypothyroid, and breast Ca presents with longstanding right knee pain. Pain interfering with daily activities. She has failed conservative measures including injections and anti- inflammatories. She has previous left knee replacement and has done well. She would like to proceed with right knee replacement. Patient denies headaches, sweats, fevers, chills, double vision, blurred vision, cough, sore throat, dysphagia, chest pain, sob, wheezing, n/v/d/c, numbness, tingling, fatigue, uri nary symptoms, mood disorders. ROS positive for right knee pain and stiffness. Allergies Allergy/AdvReac Type Severity Reaction Status Date / Time gabapentin AdvReac Mild Feet, leg Verified 04/28/21 11:31 swelling Home Medications Medication Instructions Recorded Confirmed Type amlodipine 10 mg tablet 10 mg PO QPM 01/17/19 04/15/21 History ibandronate 150 mg tablet 150 mg PO MONTHLY 01/17/19 04/15/21 History levothyroxine 88 mcg tablet 88 mcg PO HS 01/17/19 04/15/21 History [id number] 5 mg-zeaxanth 1 cap PO HS 01/17/19 04/15/21 History 1 mg-bilberry 7.5 mg-herbal capsule (Macular Health Formula) cholecalciferol (vitamin D3) 25 25 mcg PO QPM 04/15/21 04/15/21 History mcg (1,000 unit) chewable tablet (Vitamin D3) solifenacin 10 mg tablet 10 mg PO QPM 04/15/21 04/15/21 History Past Med/Surg History Medical History History of urinary frequency Nighttime (controlled with solfenacin) Hx of breast cancer 2013 s/p b/l mastectomy (no chemo/no xrt) Hypertension Hypothyroidism Macular degeneration on preventative medication Osteoarthritis Surgical History History of bilateral mastectomy History of total knee replacement Left TKA (02/08/19): SAB at L3/L4 (x1 attempt) + PNB at [facility] Hx of bilateral breast implants 2013 Hx of hysterectomy, total Family History Mother Breast cancer Social History (Updated 04/15/21 @ 12:46 by Falguni Rubi RN) Smoking Status: Never smoker Second Hand Exposure: Yes (FATHER SMOKED/SPOUSE USED TO SMOKE); Do You Dip or Chew Tobacco: No; Hx Alcohol Use: No Hx Substance Use: No Preferred Language: [place] Citizen Communication Ability: Effective Supervisor [employer] Required: No Beliefs That Will Affect Care: None Current Living Situation: Spouse current occupational status: retired Other Information That Helps Us Care for You: No Feels Safe at Home: Yes Safety Concerns: Feels Safe At This Time Assistive Devices: Glasses and Walker Review of Systems All systems reviewed & are unremarkable except as noted in HPI & below Physical Exam Constitutional: well developed and well nourished; no acute distress Eyes: PERRL, conjunctivae normal, anicteric sclerae ENMT: external ear and nose normal, oropharynx normal Neck: trachea midline, no thyromegaly Respiratory: normal respiratory effort, lungs clear to auscultation Cardiovascular: RRR, no murmur, no edema Musculoskeletal: Right knee: Tenderness diffusely, max lateral joint line. Valgus alignment. Positive Keiry's. Moderate crepitation. ROM 5-115 degrees. Stable to valgus and varus stress Skin: no rashes, warm and dry Neurologic: patellar DTR's 2+ bilat, sensation intact Psychiatric: A+Ox3, euthymic affect Results & Data ([facility]) Diagnostic Findings Right knee: Endstage tricompartmental degenerative changes, bone on bone lateral compartment with severe degenerative chagnes PF compartment as well. Periarticular osteophyte formation. Valgus alignment
[~2021-05-21 10:12] MED LIST changes: +BUPIVACAINE 0.25% 30 ML VIAL ONE; -CEFAZOLIN 2000MG 2,000 MG/15 ML SYR IV SCH; -EPINEPHrine INJ 1 MG/ML AMP ONE; +GABAPENTIN 300 MG CAP PO SCH; -LR 15ML/HR IV SCH; -ROPIVACAINE 0.5% 5 MG/ML 30 ML VIAL ONE; -ROPIVACAINE 0.5% HCL/PF 150 MG, BUPIVACAINE 0.5% MPF 30 ML, EPINEPHrine 30MG/30ML (OR U... INFIL SCH; +ROPIVACAINE 0.5% HCL/PF 150 MG, BUPIVACAINE 0.75% MPF 20 ML, EPINEPHrine 30MG/30ML (OR ... INSTIL SCH; +ceFAZolin 2000MG 2,000 MG/15 ML SYR IV SCH
[2021-05-21] MEDS ORDERED: MIDAZOLAM HCL 1 MG/ML 2ML VIAL ONE (12:10)
--- NOTE | 2021-05-21 12:10 | History & Physical Bridge Note ---
Date of Service May 21, 2021 History & Physical Bridge Note I have examined the patient, reviewed the History & Physical and in the interval since the performance of the History & Physical I have noted the following changes of clinical significance: no changes noted
[2021-05-21] MEDS ORDERED: ORTHO JOINT ANESTHETIC ONE (12:30)
[2021-05-21] MEDS ORDERED: ePHEDrine sulfate 50 MG/ML AMP IV PRN (12:34)
[2021-05-21] MEDS ORDERED: ONDANSETRON INJ 2 MG/ML 2 ML VIAL IV PRN ×2 (12:34→16:47)
[2021-05-21] MEDS ORDERED: ATROPINE SULFATE 0.1 MG/ML 10ML SYR IV PRN (12:34)
[2021-05-21] MEDS ORDERED: fentaNYL citrate 100 MCG/2 ML VIAL IV PRN (12:34)
[2021-05-21] MEDS ORDERED: PROPOFOL IV EMULSION 10 MG/ML 20 ML VIAL IV ONE ×2 (12:41→13:23)
[2021-05-21] MEDS ORDERED: LIDOCAINE 2% 2 ML VIAL/AMP(20MG/ML) INFIL ONE (12:41)
[2021-05-21] MEDS ORDERED: PHENYLEPHRINE HCL 10 MG/ML VIAL ONE (14:46)
--- NOTE | 2021-05-21 15:24 | Post Operative Brief Note ---
Immediate Post Op Note v1 Date of Surgery May 21, 2021 Pre & Post Diagnosis Operation Date: 05/21/21 12:15 Pre-Op Diagnosis: Unilateral Primary Osteoarthrits Knee Right Post-Op Diagnosis: Unilateral Primary Osteoarthrits Knee Right I identified the patient and participated in the time-out.: Yes Procedure Operation Date: 05/21/21 12:15 Actual Procedures p Right Total Knee Arthroplasty(Right) superficial wound VAC- Campos See MD Surgeon Campos See MD Filenet Architect Kenan WILLAMS Estimated Blood Loss 5 Findings Consistent with Post-Op Diagnosis Specimens Bone cuts Drains Hemovac Drain Anesthesia Type MAC Spinal Regional Complications none Disposition Disposition: Recovery Room Overlapping Procedure I was immediately available: during the entire case.
--- NOTE | 2021-05-21 15:31 | Operative Report ---
Post Operative Report Pre & Post Diagnosis Operation Date: 05/21/21 12:15 Pre-Op Diagnosis: Unilateral Primary Osteoarthritis Knee Right Post-Op Diagnosis: Unilateral Primary Osteoarthritis Knee Right I identified the patient and participated in the time-out.: Yes Procedure Operation Date: 05/21/21 12:15 Actual Procedures p Right Total Knee Arthroplasty(Right), superficial wound VAC- Campos See MD Surgeon Campos See MD Marine Designer Kenan WILLAMS Estimated Blood Loss 5 Findings Consistent with Post-Op Diagnosis Specimens Bone cuts Drains 2 Hemovac Anesthesia Type MAC Spinal Regional Complications none Disposition Accompanied Patient To Recovery: No Disposition: Recovery Room Indications 76-year-old female with severe right knee osteoarthritis with 20 degree valgus knee [id number] lateral compartment with tricompartmental osteoarthritis. Patient has successful total knee replacement on her opposite knee with similar pathology Description of Procedure Patient taken to the operating room the size under spinal MAC regional anesthesia. Patient was placed supine on the operating table. A pneumatic tourniquet was placed about the right upper thigh. The right lower extremity was prepped and draped in sterile fashion. Knee exam demonstrated valgus laxity due to MCL laxity medially and bone loss laterally with full range of motion. The leg was elevated exsanguinated with an Esmarch bandage and pneumatic tourniquet was raised to 325 millimeters of mercury. Skin incised sharply in longitudinal fashion. Subcutaneous flaps elevated. Incision was made through the medial retinaculum extending up in the mid third of the quadriceps tendon and down to the medial tibial tubercle. Intra-articular findings demonstrated tricompartmental osteoarthritis with hypoplastic lateral femoral condyle and [id number] lateral compartment with a chronic lateral meniscus tear with late ral displacement of the meniscus. There are multiple very sized loose bodies. The Spockly triathlon total knee arthroplasty system was used. To expose the knee the infrapatellar fat pad was resected. The meniscal remnants and cruciate ligaments were resected. Loose bodies were resected the anterior fat pad over the femur in the area of the anterior flange of the femoral component was resected. Lateral synovial bands release. The femur was exposed. An intramedullary drill hole was made into the canal. A guide lori was placed. Distal femoral cutting guide was adjusted to resect a 6 degree valgus cut with 8 millimeters distal femur resected. It was noted that the femur was osteoporotic and the bone was very soft. This was also noted on the patella during the patella cut. The knee was extended and a subperiosteal peel lateral release was performed around the patella. Patella width was measured and width was reproduced using a freehand cut technique and a 33 x 9 symmetrical patella component. The 3 drill holes were made and the excess lateral facet was beveled off to prevent any impingement. Attention was taken back to the femur which was exposed with retractors and the femoral sizing guide was pinned in position. The drill holes were placed in 3 of external rotation to match epicondylar axis. Femur sized for a 5 component. The 4-in-1 cutting block was placed and then the anterior posterior and chamfer cuts are made. The tibia was then subluxed. The external tibial cutting guide was just to make a perpendicular cut to the long axis of the tibia below the most deficient bone loss side. A lamina coil winder repair was used and the flexion extension gaps were balanced. This required lateral capsule release posterior lateral capsule release IT band release of the tibia popliteus tendon release of the femur and some recession of the lateral collateral ligament anteriorly. All posterior osteophytes removed. All meniscal remnants were resected. The tibia exposed and the trial tibial component size 4 was externally rotated in line with the tibial tubercle and pinned in position. The punch for stem was used. The notch cutting device was centered appropriately and the femoral notch cut was made. The femoral trial was inserted. Trial tibial inserts were placed and size 11 gave balanced ligaments through flexion and extension. There is little bit of laxity of the MCL in flexion so I chose to use a TS component for the final component. Patella tracking was assessed. The patella tracked centrally. The trial components were then removed and the orthomix anesthetic cocktail was injected per protocol. The knee was then copiously irrigated with pulsatile lavage saline solution. Final components were then cemented with Simplex cement. Final components were Chandana triathlon size 5 right posterior stabilized femoral component, 4 universal tibial baseplate, 11 TS tibial polyethylene insert, and S 33 x 9 patella. After the cement cured the Betadine soak was used per protocol. After cement cured further pulsatile lavage irrigation performed and 2 Hemovac drains were brought out laterally. The quadriceps tendon and medial retinaculum were closed with figure of 8 #1 Vicryl sutures. The knee was taken through full range of motion and the repair was secure. The subcutaneous tissues were closed with 2-0 Vicryl sutures. Skin was closed with sarthak. A brittaney and Acticoat superficial wound VAC was applied. Patient procedure well. Kenan WILLAMS was my physician recruitment and outreach assistant who assisted in patient positioning prepping and draping,leg positioning ,soft tissue retraction and instrument management and participated in the closing and applied superficial wound VAC and will participate in postoperative care of the patient. The patient tolerated the procedure well. I attest to the content of the Intraoperative Record and any orders documented therein. Any exceptions are noted below.
--- NOTE | 2021-05-21 15:33 | Anesthesiology Progress Note ---
Date of Service May 21, 2021 Anesthesia Post Procedure Vital Signs Vital Signs: Temp Pulse Resp BP Pulse Ox 05/21/21 10:35 36.7 C 73 17 138/76 93 Transfer of Care Handoff Completed per policy Notes Mental Status: alert / awake / arousable and participated in evaluation Patient Amnestic to Procedure: Yes Nausea / Vomiting: adequately controlled Pain: adequately controlled Airway Patency, RR, SpO2: stable & adequate BP & HR: stable & adequate Hydration State: stable & adequate Neuraxial Anesthesia: was administered and sensory block is resolving Anesthetic Complications: no major complications apparent and Pt Satisfied with anesthetic care
--- NOTE | 2021-05-21 15:52 | XRay Report ---
TWO VIEWS RIGHT KNEE CLINICAL HISTORY: Postoperative examination. FINDINGS: AP and crosstable lateral portable views of the right knee are obtained. A hinged right kne e arthroplasty is in near anatomic alignment. There has been undersurface remodeling of the patella. No acute fracture is seen. There are expected postoperative changes around the knee including skin cl ips, a surgical drain, soft tissue edema, and subcutaneous gas. IMPRESSION: Expected postoperative changes status post right knee arthroplasty. No acute fracture is seen. ACT 112: Negative or not required by law. Electronically signed by: Yogesh Kraus M.D. 05/21/2021 3:51 PM
[2021-05-21] MEDS ORDERED: oxyCODONE HCL IR 5 MG TAB (IMMEDIATE RELEASE) PO PRN (16:47)
[2021-05-21] MEDS ORDERED: NON-FORMULARY MEDICATION (Ibandronate 150 mg Tablet) PO SCH (16:47)
[2021-05-21] MEDS ORDERED: SODIUM CHLORIDE 0.9% 1000ML 1,000 ML IV SCH (16:47)
[2021-05-21] MEDS ORDERED: HYDROmorphone INJ 0.5 MG/0.5 ML SYR IV PRN (16:47)
[2021-05-21] MEDS ORDERED: MAGNESIUM HYDROXIDE SUSP 30 ML UDC PO PRN (16:47)
[2021-05-21] MEDS ORDERED: bisacodyL 10 MG SUPP PR PRN (16:47)
[2021-05-21] MEDS ORDERED: METOCLOPRAMIDE HCL INJ 5 MG/ML 2 ML VIAL IV PRN (16:47)
[2021-05-21] MEDS ORDERED: NALOXONE HCL 0.4 MG/1 ML VIAL/CARP IV PRN (16:47)
[2021-05-21] MEDS: ceFAZolin 2000MG 2,000 MG/15 ML SYR IV SCH (20:53)
[2021-05-21] MEDS: CeleBREX 200 MG CAP PO SCH (20:54)
[2021-05-21] MEDS: ASPIRIN 81 MG ECTAB PO SCH (20:55)
[2021-05-21] MEDS: ACETAMINOPHEN 500 MG TAB PO SCH (20:59)
[2021-05-21] MEDS: DOCUSATE SODIUM 100 MG CAP PO SCH (20:59)
[2021-05-21] MEDS ORDERED: CHOLECALCIFEROL 1,000 UNITS 25 MCG TAB PO SCH (21:00)
[2021-05-21] MEDS ORDERED: LEVOTHYROXINE SODIUM 88 MCG TABLET PO SCH (21:00)
[2021-05-21] MEDS ORDERED: NON-FORMULARY MEDICATION (Mv-Mn-Lutein-Zeax-Bilber-Hb277 [Macular Health Formula] 5-1-7.5 PO SCH (21:00)
[2021-05-21] MEDS ORDERED: SENNA 8.6 MG TAB PO SCH (21:00)
[2021-05-21] MEDS ORDERED: amLODIPine BESYLATE 5 MG TAB PO SCH (21:00)
[2021-05-22] MEDS: ACETAMINOPHEN 500 MG TAB PO SCH (05:04)
[2021-05-22] MEDS: ceFAZolin 2000MG 2,000 MG/15 ML SYR IV SCH (05:04)
[2021-05-22 05:56] LABS: Hematocrit (blood only) 34.7 % (37-47); Hemoglobin 11.6 g/dL (12.0-16.0); Mean Corpuscular Hemoglobin 30.4 pg (25-34); Mean Corpuscular Hgb Conc 33.4 g/dL (32-36); Mean Corpuscular Volume 90.8 fL (80-100); Mean Platelet Volume 10.1 fL (7.4-10.4); Platelet Count 302 K/uL (130-400); RDW Coefficient of Variation 13.5 % (11.5-14.5); RDW Standard Deviation 44.6 fL (36.4-46.3); Red Blood Count 3.82 M/uL (4.2-5.4); White Blood Count 18.57 K/uL (4.8-10.8)
[2021-05-22 06:35] LABS: BUN Creatinine Ratio 22.4 (10-20); Creatinine Clr Calc Pharmacy 69.2 ml/min; Est GFR (African American) 79.9 ml/min; Potassium 4.1 mmol/L (3.5-5.1)
--- NOTE | 2021-05-22 07:14 | Orthopedic Progress Note ---
Date of Service May 22, 2021 Assessment & Plan (1) S/P total knee arthroplasty: Plan: POD#1 Right TKA -PT/OT -Pain management as written -DVT prophylaxis-SCDs, TEDs, ASA 81mg BID -AM labs-hemoglobin at 11.6 from 14.5 preop, acute blood loss anemia due to surgical loss/dilutional. Leukocytosis likely reactive due to surgical stress/perioperative steroids -D/C planning-home with HHPT, likely today as long as therapy goes well. Admission and Anticipated Discharge Date Admission Date: May 21, 2021 Subjective Patient is POD#1 right TKA. Doing well this morning, hoping to go home. Pain well controlled. No current complaints. Denies chest pain, sob, dizziness, headache, fever chills. She is passing gas. Review of Systems Review of Systems: All systems reviewed & are unremarkable except as noted in Subjective Physical Exam Physical Exam: Right knee dressing is c/d/i. Hemovac functioning, ZULEIKA functioning. Toes mobile with good dorsiflexion. No calf tenderness. Distally n/v status and sensation are intact. Constitutional: well developed and well nourished; no acute distress Results & Data ([facility]) Vital Signs (Past 12 Hours) Vital Signs Temp Pulse Resp BP Pulse Ox 05/22/21 01:04 36.5 C 57 L 95 H 123/68 96 05/21/21 22:52 36.7 C 66 18 112/65 96 05/21/21 19:58 36.7 C 69 18 124/66 94 Laboratory Results Lab Results 05/21/21 05/21/21 05/22/21 Range/Units 10:20 10:20 05:38 WBC 18.57 H (4.8-10.8) K/uL RBC 3.82 L (4.2-5.4) M/uL Hgb 11.6 L (12.0-16.0) g/dL Hct 34.7 L (37-47) % MCV 90.8 (80-100) fL MCH 30.4 (25-34) pg MCHC 33.4 (32-36) g/dL RDW Std Deviation 44.6 (36.4-46.3) fL RDW Coeff of Laquita 13.5 (11.5-14.5) % Plt Count 302 (130-400) K/uL MPV 10.1 (7.4-10.4) fL Sodium (136-145) mmol/L Potassium (3.5-5.1) mmol/L Chloride (98-107) mmol/L Carbon Dioxide (21-32) mmol/L Anion Gap (3-11) BUN (7-18) mg/dl Creatinine (0.6-1.2) mg/dl Est Cr Clr Drug Dosing ml/min Est GFR ( Amer) ml/min Est GFR (Non-Af Amer) ml/min BUN/Creatinine Ratio (10-20) Glucose (70-99) mg/dl Calcium (8.5-10.1) mg/dl COVID-19 Eval [facility] SARS-CoV-2, RNA, NAAT NEGATIVE (NEGATIVE) 05/22/21 Range/Units 05:38 WBC (4.8-10.8) K/uL RBC (4.2-5.4) M/uL Hgb (12.0-16.0) g/dL Hct (37-47) % MCV (80-100) fL MCH (25-34) pg MCHC (32-36) g/dL RDW Std Deviation (36.4-46.3) fL RDW Coeff of Laquita (11.5-14.5) % Plt Count (130-400) K/uL MPV (7.4-10.4) fL Sodium 140 (136-145) mmol/L Potassium 4.1 (3.5-5.1) mmol/L Chloride 113 H (98-107) mmol/L Carbon Dioxide 22 (21-32) mmol/L Anion Gap 5.0 (3-11) BUN 19 H (7-18) mg/dl Creatinine 0.83 (0.6-1.2) mg/dl Est Cr Clr Drug Dosing 69.2 ml/min Est GFR ( Amer) 79.9 ml/min Est GFR (Non-Af Amer) 69.0 ml/min BUN/Creatinine Ratio 22.4 H (10-20) Glucose 126 H (70-99) mg/dl Calcium 9.0 (8.5-10.1) mg/dl COVID-19 Eval Order SARS-CoV-2, RNA, NAAT (NEGATIVE)
--- NOTE | 2021-05-22 08:30 | Hospitalist Consultation ---
Date of Consultation May 22, 2021 Assessment & Plan (1) Primary osteoarthritis of right knee: (2) History of urinary frequency: (3) Hypothyroidism: (4) Hypertension: Patient chart was reviewed by patient discharged prior to being seen therefore I will not be billing for this time. History of Present Illness Reason for Consultation: Post-op management Attending Physician: Campos See MD History of Present Illness Stephany Chua is a 76 year old female her for elective right total knee arthroplasty performed 05/[address] See. Post-operative labs reviewed. Chronic medical issues: Hypertension - well controlled on amlodipine, restarted last night and blood pressure maintaining today. Hypothyroidism - No TSH on file. Continue levothyroxine. Osteoporosis - ibandronate, hold her orthopedic recommendations perioperatively Allergies Allergy/AdvReac Type Severity Reaction Status Date / Time gabapentin AdvReac Mild Feet, leg Verified 05/21/21 10:38 swelling Home Medications Medication Instructions Recorded Confirmed Type amlodipine 10 mg tablet 10 mg PO QPM 01/17/19 05/21/21 History ibandronate 150 mg tablet 150 mg PO MONTHLY 01/17/19 05/21/21 History levothyroxine 88 mcg tablet 88 mcg PO HS 01/17/19 05/21/21 History [id number] 5 mg-zeaxanth 1 cap PO HS 01/17/19 05/21/21 History 1 mg-bilberry 7.5 mg-herbal capsule (Macular Health Formula) cholecalciferol (vitamin D3) 25 25 mcg PO QPM 04/15/21 05/21/21 History mcg (1,000 unit) chewable tablet (Vitamin D3) solifenacin 10 mg tablet 10 mg PO QPM 04/15/21 05/21/21 History acetaminophen 500 mg tablet 1,000 mg PO Q8 #60 tab 05/22/21 Rx (Tylenol Extra Strength) aspirin 81 mg tablet,delayed 81 mg PO BID #60 tab 05/22/21 Rx release celecoxib 200 mg capsule (Celebrex) 200 mg PO BID #60 cap 05/22/21 Rx docusate sodium 100 mg capsule 100 mg PO BID #30 cap 05/22/21 Rx oxycodone 5 mg tablet 5 - 10 mg PO .Q4h-6h PRN #30 tab 05/22/21 Rx MDD 6 Patient History Medical History History of urinary frequency Nighttime (controlled with solfenacin) Hx of breast cancer 2013 s/p b/l mastectomy (no chemo/no xrt) Hypertension Hypothyroidism Macular degeneration on preventative medication Osteoarthritis Surgical History History of bilateral mastectomy History of total knee replacement Left TKA (02/08/19): SAB at L3/L4 (x1 attempt) + PNB at [facility] Hx of bilateral breast implants 2014 Hx of hysterectomy, total Family History Mother Breast cancer Social History (Updated 04/15/21 @ 12:46 by Falguni Rubi RN) Smoking Status: Never smoker Second Hand Exposure: Yes (FATHER SMOKED/SPOUSE USED TO SMOKE); Do You Dip or Chew Tobacco: No; Hx Alcohol Use: No Hx Substance Use: No Preferred Language: Ethiopian Communication Ability: Effective Instructional Leader Required: No Beliefs That Will Affect Care: None marital status: Current Living Situation: Spouse current occupational status: retired Other Information That Helps Us Care for You: No Feels Safe at Home: Yes Safety Concerns: Feels Safe At This Time Assistive Devices: Walker Results & Data Results & Data ([facility]) Vital Signs (Past 12 Hours) Vital Signs Temp Pulse Pulse Resp BP Pulse Ox 05/22/21 07:22 36.8 C 60 16 124/62 93 05/22/21 01:04 36.5 C 57 L 95 H 123/68 96 05/21/21 22:52 36.7 C 66 18 112/65 96 PG Care Time/CCT Total # of Minutes Spent Total Time Spent with Patient: Total time spent is greater than 50% in coordination of care (as documented) at patient's floor/unit and/or counseling patient: Coding Level of Care Code None Diagnoses Primary osteoarthritis of right knee M17.11 History of urinary frequency Z87.898 Hypothyroidism E03.9 Hypertension I10
[2021-05-22] MEDS: ASPIRIN 81 MG ECTAB PO SCH (08:43)
[2021-05-22] MEDS: CeleBREX 200 MG CAP PO SCH (08:43)
[2021-05-22] MEDS: DOCUSATE SODIUM 100 MG CAP PO SCH (08:43)
[2021-05-22] MEDS ORDERED: MULTIVITAMIN TAB PO SCH (09:00)
--- NOTE | 2021-05-23 07:55 | Discharge Summary ---
Date of Service May 23, 2021 Admission HPI Per Admitting Provider 76 year old female with PMHx significant for HTN, hypothyroid, and breast Ca presents with longstanding right knee pain. Pain interfering with daily activities. She has failed conservative measures including injections and anti- inflammatories. She has previous left knee replacement and has done well. She would like to proceed with right knee replacement. Patient denies headaches, sweats, fevers, chills, double vision, blurred vision, cough, sore throat, dysphagia, chest pain, sob, wheezing, n/v/d/c, numbness, tingling, fatigue, urinary symptoms, mood disorders. ROS positive for right knee pain and stiffness. Admission Exam Per Admitting Provider Constitutional: well developed and well nourished; no acute distress Eyes: PERRL, conjunctivae normal, anicteric sclerae ENMT: external ear and nose normal, oropharynx normal Neck: trachea midline, no thyromegaly Respiratory: normal respiratory effort, lungs clear to auscultation Cardiovascular: RRR, no murmur, no edema Musculoskeletal: Right knee: Tenderness diffusely, max lateral joint line. Valgus alignment. Positive Keiry's. Moderate crepitation. ROM 5-115 degrees. Stable to valgus and varus stress Skin: no rashes, warm and dry Neurologic: patellar DTR's 2+ bilat, sensation intact Psychiatric: A+Ox3, euthymic affect Principal Diagnosis Right knee osteoarthritis Discharge Exam Constitutional well developed and well nourished; no acute distress Eyes PERRL, conjunctivae normal, anicteric sclerae ENMT external ear and nose normal, oropharynx normal Neck trachea midline, no thyromegaly Respiratory normal respiratory effort, lungs clear to auscultation Cardiovascular RRR, no murmur, no edema Skin no rashes, warm and dry Neurologic patellar DTR's 2+ bilat, sensation intact Psychiatric A+Ox3, euthymic affect Discharge Data Allergies Allergy/AdvReac Type Severity Reaction Status Date / Time gabapentin AdvReac Mild Feet, leg Verified 05/21/21 10:38 swelling Consultations 05/16/21 15:12 Consult Hospitalist Routine Procedures Performed Operation Date: 05/21/21 12:15 Actual Procedures p Right Total Knee Arthroplasty(Right) - Campos See MD Ordered Studies 05/21/21 05:00 US - OR guided needle placemen Routine Hospital Course (1) S/P total knee arthroplasty: Patient presented for same day admission following right total knee arthroplasty on 05/21/21. She tolerated procedure well. The Patient had an uneventful hospital course. Post-operatively, her activity was progressed and well tolerated. They participated in PT with ambulation distance of 330 feet. ROM of operative knee reached 92 degrees. Labs remained stable- lowest hemoglobin recorded: 11.6. Dr. Juan Antonio Rodriguez of medical service was consulted for medical management during admission. Pain controlled on oral medications. Please refer to daily progress notes and PT notes for complete details. After exam on 05/22/21, patient was felt to be stable for discharge home with home health therapy. Patient will f/u in the office in about 2 weeks for further evaluation including x-rays and incision check, sooner if having any issues or concerns. POD#1 Right TKA -PT/OT -Pain management as written -DVT prophylaxis-SCDs, TEDs, ASA 81mg BID -AM labs-hemoglobin at 11.6 from 14.5 preop, acute blood loss anemia due to surgical loss/dilutional. Leukocytosis likely reactive due to surgical stress/perioperative steroids -D/C planning-home with HHPT, likely today as long as therapy goes well. Lab Results 05/21/21 05/21/21 05/22/21 Range/Units 10:20 10:20 05:38 WBC 18.57 H (4.8-10.8) K/uL RBC 3.82 L (4.2-5.4) M/uL Hgb 11.6 L (12.0-16.0) g/dL Hct 34.7 L (37-47) % MCV 90.8 (80-100) fL MCH 30.4 (25-34) pg MCHC 33.4 (32-36) g/dL RDW Std Deviation 44.6 (36.4-46.3) fL RDW Coeff of Laquita 13.5 (11.5-14.5) % Plt Count 302 (130-400) K/uL MPV 10.1 (7.4-10.4) fL Sodium (136-145) mmol/L Potassium (3.5-5.1) mmol/L Chloride (98-107) mmol/L Carbon Dioxide (21-32) mmol/L Anion Gap (3-11) BUN (7-18) mg/dl Creatinine (0.6-1.2) mg/dl Est Cr Clr Drug Dosing ml/min Est GFR ( Amer) ml/min Est GFR (Non-Af Amer) ml/min BUN/Creatinine Ratio (10-20) Glucose (70-99) mg/dl Calcium (8.5-10.1) mg/dl COVID[facility], [facility], NAAT NEGATIVE (NEGATIVE) 05/22/21 Range/Units 05:38 WBC (4.8-10.8) K/uL RBC (4.2-5.4) M/uL Hgb (12.0-16.0) g/dL Hct (37-47) % MCV (80-100) fL MCH (25-34) pg MCHC (32-36) g/dL RDW Std Deviation (36.4-46.3) fL RDW Coeff of Laquita (11.5-14.5) % Plt Count (130-400) K/uL MPV (7.4-10.4) fL Sodium 140 (136-145) mmol/L Potassium 4.1 (3.5-5.1) mmol/L Chloride 113 H (98-107) mmol/L Carbon Dioxide 22 (21-32) mmol/L Anion Gap 5.0 (3-11) BUN 19 H (7-18) mg/dl Creatinine 0.83 (0.6-1.2) mg/dl Est Cr Clr Drug Dosing 69.2 ml/min Est GFR ( Amer) 79.9 ml/min Est GFR (Non-Af Amer) 69.0 ml/min BUN/Creatinine Ratio 22.4 H (10-20) Glucose 126 H (70-99) mg/dl Calcium 9.0 (8.5-10.1) mg/dl COVID-19 Eval Order SARS-CoV-2, RNA, NAAT (NEGATIVE) Total Time Total Time Spent Total Time Spent (In Minutes): 20 Discharge Plan Discharge Items Patient Disposition: Home - Home Health Services Reason For Visit: Unilateral Primary Osteoarthrits Knee Right Discharge Diagnosis: Right knee osteoarthritis Activity: Per Instructions section Non-emergency contact: Surgeon Call non-emergency contact if: you have any medication questions, your pain is not controlled, your pain is unusual for you, your pain is concerning for you, you have a fever, your temperature is above 101, your wound has increased redness and your wound has increased drainage Follow-up/Referrals: Miguel Booker MD [Primary Care Provider] - Diet: Regular Addtl Attending Provider Instructions: ACTIVITY RECOMMENDATIONS: SELF CARE INSTRUCTIONS AFTER TOTAL KNEE REPLACEMENT A. You may need to continue a physical therapy program after discharge from the hospital. There are several options available to you. Your doctor will assist you in selecting the best one for you. 1. An out-patient facility 2 to 3 times a week for therapy or home therapy. 2. Continue working on all exercises taught to you in the hospital. Your goals should be to increase bending of your knee to 90 degrees and beyond and to fully straighten your knee. B. You may progress at your own pace from walking with a walker or crutches to a cane; then to no assistive devices. C. Make walking a part of your daily routine. Be up as much as comfortable with rest periods throughout the day. Rest with leg elevation is very important. Use the ice wrap frequently for the first 3-4 weeks. D. There are no restrictions on activities. You may ride in a car, shop, participate in accounting specialist and all social activities. E. Wear the long elastic stockings (LOUISA hose) 20 hours a day for 2 weeks after surgery. They can be removed several times a day for laundering and for a bath. F. You may shower, no tub baths until cleared by your doctor. SPECIAL CARE INSTRUCTIONS: VERY IMPORTANT TO READ AND REVIEW A. There are a few signs you need to watch for after you are home. Call [facility] if you notice any of the followin. Increased severe knee pain. Some pain is expected especially when you exercise. 2. Increased swelling in your leg or knee; pain or swelling of the calf muscle in either lower leg. 3. Any fluid drainage from the incision. 4. Shortness of breath or chest pain. B. Please call [facility] at if you have any concerns or questions about your operation or recovery. The doctor or his nurse will return your call promptly. C. You must take antibiotics before dental work, bladder, bowel or other surgery. Your doctor will provide you with a permanent care to carry describing this precaution. IMPORTANT: * REMEMBER TO TAKE ASPIRIN, 81 MG, TWICE DAILY FOR 4 WEEKS UNLESS OTHERWISE DIRECTED. THIS IS YOUR BLOOD THINNER. * HIGH RISK PATIENTS MAY BE PRESCRIBED A STRONGER BLOOD THINNER. THIS WILL BE PROVIDED AT DISCHARGE. * CALL IF INCREASED PAIN, REDNESS, DRAINAGE OR FEVER GREATER THAT 101. * WEAR LOUISA HOSE 20 HOURS PER DAY FOR 2 WEEKS. This is a large suction dressing covering your incision. This will help pull any excess drainage from the wound and allow your incision to heal properly. You may shower with this if you can keep the unit outside of the shower. If any bleeding or leakage is noted please call your doctor's office. This will remain on your incision for 7 days and then should be removed. This can be done yourself or by the home nursing staff if applicable. The entire unit is disposable once removed. Once removed, keep incision clean and dry. If redness or drainage is noted, please call your surgeon. IF INCISION IS LEAKING THROUGH DRESSING, CALL THE OFFICE . FOLLOW UP VISIT: If appointment is not already scheduled: Please call [facility] to make a follow-up appointment for 2 weeks after your surgery at . Pending Studies at Discharge: No Stand-Alone Forms: My [facility], Opioid Pain Management, Smoking Cessation Medications and DC Order Prescriptions: New celecoxib [Celebrex] 200 mg Capsule 200 mg PO BID Qty: 60 RF: 0 aspirin 81 mg Tablet,Delayed Release (Dr/Ec) 81 mg PO BID Qty: 60 RF: 0 acetaminophen [Tylenol Extra Strength] 500 mg Tablet 1,000 mg PO Q8 Qty: 60 RF: 0 oxycodone 5 mg Tablet 5 - 10 mg PO .Q4h-6h MDD 6 PRN (Reason: pain) Qty: 30 RF: 0 docusate sodium 100 mg Capsule 100 mg PO BID Qty: 30 RF: 0 Continued levothyroxine 88 mcg Tablet 88 mcg PO HS RF: 0 amlodipine 10 mg Tablet 10 mg PO QPM RF: 0 ibandronate 150 mg Tablet 150 mg PO MONTHLY RF: 0 Macular Health Formula 5-1-7.5 mg Capsule 1 cap PO HS RF: 0 cholecalciferol (vitamin D3) [Vitamin D3] 25 mcg (1,000 unit) Tablet,Chewable 25 mcg PO QPM RF: 0 solifenacin 10 mg Tablet 10 mg PO QPM RF: 0 Discharge Orders: Discharge Order (Routine); Ordered 05/22/21 Ordered By: Torres Gordon Admission Data Admit Date/Time: 05/21/21 15:26 Attending Provider: Campos See Admit Provider: Campos See Primary Care Provider: Miguel Booker Other Providers: Juan Antonio Rodriguez ; [facility],Home Healthcare Other Interventions: Discharge Summary Assessment (RN) Last Done: 05/22/21 11:11
== END 2021-05-22 12:12 | disposition home health service (06) ==
LOC: 3E 10:12 → ASU 10:12
DX: Z85.3 Personal history of malignant neoplasm of breast; M19.90 Unspecified osteoarthritis, unspecified site; Z90.13 Acquired absence of bilateral breasts and nipples; Z79.899 Other long term (current) drug therapy; Z96.652 Presence of left artificial knee joint; M17.11 Unilateral primary osteoarthritis, right knee; Z88.8 Allergy status to other drugs, medicaments and biological substances; I10 Essential (primary) hypertension; E03.9 Hypothyroidism, unspecified